=== PATIENT | female | born 1960 | race Caucasian/White ===

== ENCOUNTER 2019-03-22 13:51 | Inpatient (IN) | payer OTHER ==
[2019-03-22 14:11] LABS: ADD MAN DIFF? NO
[2019-03-22 14:15] LABS: BASOPHIL # 0.1 10^3/ul (0.0-0.1); BASOPHILS % 0.6 % (0.0-2.0); EOSINOPHILS # 0.1 10^3/ul (0.0-0.5); EOSINOPHILS % 0.9 % (0.0-7.0); HEMATOCRIT 39.5 % (37.0-47.0); HEMOGLOBIN 13.3 g/dl (12.0-16.0); LYMPHOCYTES # 2.4 10^3/ul (0.8-2.9); LYMPHOCYTES % 25.4 % (15.0-51.0); MEAN CORPUSCULAR HEMOGLOBIN 29.6 pg (29.0-33.0); MEAN CORPUSCULAR HGB CONC 33.7 g/dl (32.0-37.0); MEAN PLATELET VOLUME 9.9 fl (7.4-10.4); MONOCYTE # 0.6 10^3/ul (0.3-0.9); MONOCYTES % 6.1 % (0.0-11.0); NEUTROPHIL # 6.4 10^3/ul (1.6-7.5); NEUTROPHILS % 66.7 % (39.0-77.0); PLATELET COUNT 279 10^3/UL (140-415); RED BLOOD COUNT 4.49 10^6/ul (4.20-5.40); RED CELL DISTRIBUTION WIDTH 11.7 % (11.5-14.5)
[2019-03-22 14:15] LABS: WHITE BLOOD COUNT 9.6 10^3/ul (4.8-10.8)
[2019-03-22 14:27] LABS: HEMOGLOBIN A1C 5.1 % (0-5.9)
[2019-03-22] MEDS ORDERED: SOD CHLORIDE 0.9% 100 ML (14:28)
[2019-03-22] MEDS ORDERED: IODIXANOL LOCM 100 ML BTL (14:29)
[2019-03-22 14:34] LABS: ANION GAP 9 (5-13); BLOOD UREA NITROGEN 11 mg/dl (7-20); CALCIUM 9.8 mg/dl (8.4-10.2); CARBON DIOXIDE 27 mmol/L (21-31); CHLORIDE 104 mmol/L (97-110); CHOL/HDL RATIO 3.3 RATIO; CHOLESTEROL 234 mg/dl (100-200); CREATINE KINASE 63 IU/L (23-200); CREATININE 0.68 mg/dl (0.44-1.00); Estimated GFR > 60 mL/min (>60); GLUCOSE 117 mg/dl (70-220); HDL CHOLESTEROL 70 mg/dl (35-98); LDL CHOLESTEROL,CALCULATED 141 mg/dl; SODIUM 140 mmol/L (135-144); TRIGLYCERIDES 114 mg/dl (0-149)
[2019-03-22 14:35] LABS: ETHANOL < 10.0 mg/dl (0-0); POTASSIUM 3.7 mmol/L (3.5-5.1)
[2019-03-22 14:38] LABS: INR 0.96; PARTIAL THROMBOPLASTIN TIME 28.3 Sec (23.0-35.0); PROTIME 12.9 Sec (11.9-14.9)
[2019-03-22] MEDS: METOCLOPRAMIDE 10 MG INJ IV (14:47)
[2019-03-22] MEDS: hydrALAzine 20 MG INJ IV (14:47)
[2019-03-22] MEDS: FENTAnyl 50 MCG/ML VIAL IV (14:47)
[2019-03-22 15:08] LABS: CK INDEX 0.6; CK-MB 0.39 ng/ml (0.0-2.4); TROPONIN-I < 0.012 ng/ml (0.000-0.120)
[2019-03-22] MEDS ORDERED: ACETAMINOPHEN 325 MG TAB PO (16:00)
[2019-03-22] MEDS ORDERED: ONDANSETRON 4 MG INJ IV (16:00)
[2019-03-22] MEDS: SOD CHLORIDE 0.45% 1,000 ML IV (16:04)
[2019-03-22] MEDS ORDERED: NACL 0.9% 3 ML SYG IV (16:30)
[2019-03-22] MEDS ORDERED: LORAZEPAM 2 MG INJ IV (16:30)
[2019-03-22] MEDS ORDERED: NITROGLYCERIN (SL) 0.4 MG TAB SL (16:30)
[2019-03-22] MEDS ORDERED: DOCUSATE SODIUM 100 MG CAP PO (16:30)
[2019-03-22] MEDS ORDERED: HYDROCODONE/APAP (5/325) TAB PO (16:30)
[2019-03-22] MEDS ORDERED: morphine 2 MG INJ IV (16:30)
[2019-03-22] MEDS ORDERED: MAGNESIUM HYDROXIDE 30ML CUP PO (16:30)
[2019-03-22] MEDS ORDERED: hydrALAzine 20 MG INJ IV (16:30)
[2019-03-22] MEDS ORDERED: ALBUTEROL/IPRATROPIUM (NEB) 3 ML AMP HHN (16:30)
[2019-03-22] MEDS: ONDANSETRON 4 MG INJ IV (16:55)
[2019-03-22 17:16] LABS: FREE T4 (FREE THYROXINE) 1.08 ng/dl (0.64-1.79)
[2019-03-22 21:08] LABS: ADD UMIC NO; UR ASCORBIC ACID NEGATIVE (NEGATIVE); UR BACTERIA FEW /HPF (NONE SEEN); UR BILIRUBIN (Dip) NEGATIVE (NEGATIVE); UR BLOOD (Dip) NEGATIVE (NEGATIVE); UR CLARITY SLIGHTLY CLOUDY (CLEAR); UR COLOR YELLOW (YELLOW); UR GLUCOSE (Dip) NEGATIVE (NEGATIVE); UR KETONES (Dip) 1+ mg/dL (NEGATIVE); UR LEUKOCYTE ESTERASE (Dip) NEGATIVE Leu/ul (NEGATIVE); UR MUCUS FEW /HPF (NONE SEEN); UR NITRITE (Dip) NEGATIVE (NEGATIVE); UR RBC 3 /HPF (0-5); UR SQUAMOUS EPITHELIAL CELL FEW /HPF (FEW); UR TOTAL PROTEIN (Dip) NEGATIVE (NEGATIVE); UR UROBILINOGEN (Dip) NEGATIVE (NEGATIVE); UR WBC 4 /HPF (0-5)
[2019-03-22] MEDS: ACETAMINOPHEN 325 MG TAB PO (21:10)
[2019-03-22] MEDS: ATORVASTATIN 80 MG TAB PO (21:10)
[2019-03-22 21:33] LABS: BARBITURATES NEGATIVE (NEGATIVE); BENZODIAZEPINES NEGATIVE (NEGATIVE); CANNABINOIDS NEGATIVE (NEGATIVE); COCAINE NEGATIVE (NEGATIVE); OPIATES NEGATIVE (NEGATIVE)
[2019-03-22 21:46] LABS: AMPHETAMINE/METHAMPHETAMINE Negative (NEGATIVE)
[2019-03-23] MEDS: SOD CHLORIDE 0.45% 1,000 ML IV (05:24)
[2019-03-23] MEDS: PANTOPRAZOLE (EC) 40 MG TAB PO (05:58)
[2019-03-23 06:22] LABS: ADD MAN DIFF? NO
[2019-03-23 06:25] LABS: WHITE BLOOD COUNT 10.1 10^3/ul (4.8-10.8)
[2019-03-23 06:25] LABS: BASOPHIL # 0.1 10^3/ul (0.0-0.1); BASOPHILS % 0.6 % (0.0-2.0); EOSINOPHILS # 0.1 10^3/ul (0.0-0.5); EOSINOPHILS % 0.9 % (0.0-7.0); HEMATOCRIT 38.1 % (37.0-47.0); HEMOGLOBIN 12.6 g/dl (12.0-16.0); LYMPHOCYTES # 2.9 10^3/ul (0.8-2.9); LYMPHOCYTES % 28.4 % (15.0-51.0); MEAN CORPUSCULAR HEMOGLOBIN 29.6 pg (29.0-33.0); MEAN CORPUSCULAR HGB CONC 33.1 g/dl (32.0-37.0); MEAN CORPUSCULAR VOLUME 89.6 fl (82.0-101.0); MEAN PLATELET VOLUME 10.5 fl (7.4-10.4); MONOCYTE # 0.8 10^3/ul (0.3-0.9); MONOCYTES % 7.4 % (0.0-11.0); NEUTROPHIL # 6.3 10^3/ul (1.6-7.5); NEUTROPHILS % 62.4 % (39.0-77.0); PLATELET COUNT 261 10^3/UL (140-415); RED BLOOD COUNT 4.25 10^6/ul (4.20-5.40); RED CELL DISTRIBUTION WIDTH 12.2 % (11.5-14.5)
[2019-03-23 06:54] LABS: ANION GAP 11 (5-13); BLOOD UREA NITROGEN 15 mg/dl (7-20); CALCIUM 9.2 mg/dl (8.4-10.2); CARBON DIOXIDE 24 mmol/L (21-31); CHLORIDE 105 mmol/L (97-110); CREATININE 0.79 mg/dl (0.44-1.00); Estimated GFR > 60 mL/min (>60); GLUCOSE 124 mg/dl (70-220); MAGNESIUM 2.2 mg/dl (1.7-2.5); PHOSPHORUS 4.5 mg/dl (2.5-4.9); POTASSIUM 3.3 mmol/L (3.5-5.1); SODIUM 140 mmol/L (135-144)
[2019-03-23 06:57] LABS: CHOLESTEROL 201 mg/dl (100-200)
[2019-03-23 06:57] LABS: CHOL/HDL RATIO 3.2 RATIO; HDL CHOLESTEROL 61 mg/dl (35-98); LDL CHOLESTEROL,CALCULATED 119 mg/dl; TRIGLYCERIDES 106 mg/dl (0-149)
[2019-03-23 07:07] LABS: HEMOGLOBIN A1C 5.1 % (0-5.9)
[2019-03-23] MEDS: ASPIRIN (EC) 325 MG TAB PO (08:45)
[2019-03-23] MEDS: POTASSIUM CHLORIDE (SR) 20 MEQ TAB PO (12:03)
[2019-03-23] MEDS: ONDANSETRON 4 MG INJ IV ×2 (12:43→17:03)
[2019-03-23] MEDS: ACETAMINOPHEN 325 MG TAB PO (14:32)
[2019-03-23] MEDS: ENALAPRILAT 1.25 MG INJ IV (15:22)
[2019-03-23] MEDS: METOPROLOL 25 MG TAB PO (16:39)
[2019-03-24] MEDS ORDERED: ASPIRIN (EC) 81 MG TAB PO (09:00)
== END 2019-03-23 19:36 | disposition home or self-care (01) | DRG 78 ==
LOC: E/R 13:51 → 6WM 18:59
DX: I67.4 Hypertensive encephalopathy (principal); I16.1 Hypertensive emergency; D32.0 Benign neoplasm of cerebral meninges; R47.02 Dysphasia; I16.0 Hypertensive urgency; I10 Essential (primary) hypertension; F17.210 Nicotine dependence, cigarettes, uncomplicated
CPT/HCPCS: 36415; 70450; 70496; 70498; 70551; 71045; 80048; 80061; 80307; 81001; 81003; 82550; 82553; 83036; 83735; 84100; 84439; 84443; 84484; 85025; 85610; 85730; 87086; 93005; 93306; 93880; 96374; 96375; 97161; 97166; 99285-25